=== PATIENT | male | born 1940 | race African-American/Black ===

== ENCOUNTER 2022-12-27 08:23 | Emergency (ER) | payer OTHER ==
[~2022-12-27] VITALS: Ht 177.8 cm; Wt 82.0 kg
[2022-12-27 08:32] VITALS: O2SAT 99
[2022-12-27 11:08] LABS: BASOPHILS % 0.4 % (0.0-2.0); EOSINOPHILS % 0.5 % (0.0-5.0); HEMATOCRIT. 34.9 % (42.0-52.0); HEMOGLOBIN. 11.8 g/dL (14.0-18.0); LYMPHOCYTES % 9.4 % (20.0-50.0); MEAN CORPUSCULAR HEMOGLOBIN 30.3 pg (28.0-32.0); MEAN CORPUSCULAR HGB CONC 33.8 g/dL (31.0-37.0); MEAN CORPUSCULAR VOLUME 89.7 fL (80.0-94.0); MEAN PLATELET VOLUME 7.7 fl (7.4-10.4); NEUTROPHILS % 84.7 % (40.0-76.0); PLATELET 260 x1000/uL (130-400); RED BLOOD CELL COUNT 3.89 mill/uL (4.7-6.1); RED CELL DISTRIBUTION WIDTH 13.1 % (11.6-14.6); WHITE BLOOD COUNT 8.7 x1000/uL (4.5-11.0)
[2022-12-27 11:41] LABS: CHLORIDE 106 mEq/L (98-107); INDEX HEMOLYSI 1 (1-3); INDEX ICTERIC 1 (1-4); INDEX LIPEMIC 1 (1-3); POTASSIUM 5.6 mEq/L (3.5-5.1); SODIUM 135 mEq/L (136-145)
[2022-12-27 11:58] LABS: ALANINE AMINOTRANSFERASE 14 IU/L (13-61); ALBUMIN 3.5 g/dL (3.4-5.0); ASPARTATE AMINOTRANSFERASE 11 IU/L (15-37); BILIRUBIN TOTAL 0.5 mg/dL (0.1-1.0); CALCIUM 9.2 mg/dL (8.5-10.1); CARBON DIOXIDE 25 mEq/L (21-32); GLUCOSE 203 mg/dL (70-105); PROTEIN TOTAL 7.5 g/dL (6.0-8.3); UREA NITROGEN BLOOD 33 mg/dL (7-21)
[2022-12-27 12:42] VITALS: BP 136/80; PULSE 70; RESP 16; TEMP 98.6
== END 2022-12-27 12:43 | disposition home or self-care (01) ==
LOC: ER 09:29
DX: E11.649 Type 2 diabetes mellitus with hypoglycemia without coma (principal); E87.5 Hyperkalemia; N17.9 Acute kidney failure, unspecified; I10 Essential (primary) hypertension
CPT/HCPCS: 36415; 80053; 82962; 85025; 99283